=== PATIENT | female | born 1990 | race Caucasian/White ===

== ENCOUNTER 2018-02-22 22:48 | Emergency (ER) | payer BC, OTHER ==
[~2018-02-22] VITALS: Ht 175.3 cm; Wt 57.6 kg
[2018-02-22] MEDS ORDERED: ALBUTEROL2.5 MG/3 M INH (23:02)
[2018-02-22] MEDS ORDERED: VYVANSE20 MG ORAL (23:02)
[2018-02-22 23:15] VITALS: BP 110/72
[2018-02-22 23:55] VITALS: BP 110/72
--- NOTE | 2018-02-23 02:13 | Emergency Room Report ---
History of Present Illness General Chief Complaint: Headache Source: Patient, Family Member Present Illness HPI 27-year-old female presenting with right-sided bony head pain after she hit her head on the side of her laptop yesterday. No LOC. No nausea vomiting. No blurry vision. No other complaints Allergies: Coded Allergies: CEFDINIR (Verified Allergy, Unknown, 02/22/18) Patient History Past Medical History: see triage record Past Surgical History: none Pertinent Family History: none Last Menstrual Period: 02/18/2018 Now: No Reviewed Nursing Documentation: PMH: Agreed; PSxH: Agreed Nursing Documentation-PMH Past Medical History: No History, Except For Hx Asthma: Yes Review of Systems All Other Systems: negative except mentioned in HPI Physical Exam Vital Signs Date Time Temp Pulse Resp B/P (MAP) Pulse Ox O2 Delivery O2 Flow Rate FiO2 02/22/18 22:57 97.9 82 16 110/72 96 Room Air 97.9 Sp02 EP Interpretation: reviewed, normal General Appearance: normal inspection, well appearing, no apparent distress, alert, GCS 15, non-toxic Head: normocephalic - Slight right-sided bony tenderness, no palpable fracture , no hematoma Eyes: bilateral eye normal inspection, bilateral eye PERRL, bilateral eye EOMI ENT: normal ENT inspection, normal pharynx, normal voice, moist mucus membranes Neck: normal inspection, full range of motion, supple Respiratory: normal inspection, lungs clear, normal breath sounds, no respiratory distress, no retraction, no wheezing, speaking full sentences, chest symmetrical Cardiovascular #1: normal inspection, regular rate, rhythm, no edema, normal capillary refill Cardiovascular #2: 2+ radial (R), 2+ radial (L) Gastrointestinal: normal inspection, non tender, soft, non-distended, no guarding Musculoskeletal: normal inspection, back normal, normal range of motion, non- tender Neurologic: normal inspection, alert, oriented x3, responsive, ballroom dancer III-XII nml as tested, motor strength/tone normal, sensory intact, normal gait, speech normal Psychiatric: normal inspection, judgement/insight normal, memory normal Skin: normal inspection, normal color, no rash, warm/dry, well hydrated, normal turgor Medical Decision Making Diagnostic Impression: Primary Impression: Minor head injury ER Course 27-year-old female with minor head injury DDX: Contusion, patient appears nontoxic, injury happened 24 hours ago Plan: Pain control ER course: Patient has remained stable during ED stay. Disposition: Patient is to be discharged to home. Patient is instructed to follow up with their primary care doctor within 5 days. Please note that this Emergency Department Report was dictated using [employer] manager technology software, occasionally this can lead to erroneous entry secondary to interpretation by the dictation equipment Last Vital Signs Date Time Temp Pulse Resp B/P (MAP) Pulse Ox O2 Delivery O2 Flow Rate FiO2 02/23/18 00:04 97.9 02/22/18 23:55 82 16 110/72 96 Room Air Disposition: HOME, SELF-CARE Condition: Improved Referrals: NOT CHOSEN IPA/MD,REFERRING (PCP) Patient Instructions: Head Injury, Adult, [id number] Jaquan Miller M.D. Feb 23, 2018 02:13
== END 2018-02-22 23:55 | disposition home or self-care (01) ==
LOC: EMR 23:23
DX: S09.8XXA Other specified injuries of head, initial encounter (principal); W22.8XXA Striking against or struck by other objects, initial encounter; Y92.9 Unspecified place or not applicable; J45.909 Unspecified asthma, uncomplicated
CPT/HCPCS: 99282